=== PATIENT | male | born 1985 | race Caucasian/White ===

== ENCOUNTER 2018-01-31 06:27 | Day surgery (SDC) | payer BC ==
[2018-01-31] MEDS ORDERED: SODIUM CL BACTERIOSTATIC 30 ML INJ (07:00)
[2018-01-31] MEDS ORDERED: morphine SULFATE/PF (10 MG/10 ML) INJ (07:01)
[2018-01-31] MEDS ORDERED: EPINEPHrine 0.1 MG/ML SYG (07:02)
[2018-01-31] MEDS ORDERED: EPINEPHrine 1 MG INJ ×2 (07:04)
[2018-01-31] MEDS ORDERED: MIDAZOLAM 1 MG/ML 2 ML INJ (07:34)
[2018-01-31] MEDS ORDERED: LIDOCAINE 2% (SDV) 5 ML INJ (07:55)
[2018-01-31] MEDS ORDERED: PROPOFOL 20 ML (07:55)
[2018-01-31] MEDS ORDERED: CEFAZOLIN 1 GM INJ (07:55)
[2018-01-31] MEDS ORDERED: FAMOTIDINE 20 MG INJ (07:55)
[2018-01-31] MEDS ORDERED: DEXAMETHASONE 4 MG/ML 1 ML INJ (07:55)
[2018-01-31] MEDS ORDERED: ONDANSETRON 4 MG INJ (07:55)
[2018-01-31] MEDS ORDERED: FENTAnyl 50 MCG/ML VIAL (07:57)
[2018-01-31] MEDS: EPINEPHrine 1 MG INJ (08:12)
[2018-01-31] MEDS ORDERED: HYDROmorphONE 2 MG/ML SYG (08:43)
[2018-01-31] MEDS ORDERED: FENTAnyl 50 MCG/ML VIAL IV ×3 (10:00)
[2018-01-31] MEDS ORDERED: HYDROmorphONE (0.2 MG/ML) 10ML SYG IV ×3 (10:00)
[2018-01-31] MEDS ORDERED: ONDANSETRON 4 MG INJ IV (10:00)
[2018-01-31] MEDS ORDERED: OXYCODONE/ACETAMINOPHEN (5/325) TAB PO ×2 (10:00)
[2018-01-31] MEDS ORDERED: PROCHLORPERAZINE 10 MG INJ IV (10:00)
[2018-01-31] MEDS ORDERED: MEPERIDINE 25 MG INJ IV (10:00)
[2018-01-31] MEDS ORDERED: HYDROCODONE/APAP (5/325) TAB PO ×2 (10:00)
[2018-01-31] MEDS ORDERED: DIPHENHYDRAMINE 50 MG INJ IV (10:00)
== END 2018-01-31 11:11 | disposition home or self-care (01) ==
LOC: SDS 06:27
DX: M23.212 Derangement of anterior horn of medial meniscus due to old tear or injury, left knee (principal); M23.201 Derangement of unspecified lateral meniscus due to old tear or injury, left knee; M65.862 Other synovitis and tenosynovitis, left lower leg
CPT/HCPCS: 29880